=== PATIENT | male | born 1970 | race Caucasian/White ===

== ENCOUNTER 2019-02-12 19:48 | Emergency (ER) | payer BC ==
[~2019-02-12] VITALS: Ht 185.4 cm; Wt 118.4 kg
[2019-02-12 20:00] VITALS: BP_SYST 155
--- NOTE | 2019-02-12 20:06 | NUR ---
Patient triaged and placed in waiting room. VSS and patient appears in no acute distress at this time. Accompanied by , awaiting available bed, and MD notified of need for MSE.
[2019-02-12 21:01] LABS: BASOPHILS # (AUTO) 0.1 K/uL (0.0-0.2); BASOPHILS % (AUTO) 1.1 % (0.0-2.0); EOSINOPHILS # (AUTO) 0.5 K/uL (0.0-0.4); EOSINOPHILS % (AUTO) 5.2 % (0.0-4.0); HEMATOCRIT 43.8 % (36-54); LYMPHOCYTES # (AUTO) 3.2 K/uL (1.0-5.5); LYMPHOCYTES % (AUTO) 32.8 % (20.5-51.5); MEAN CORPUSCULAR HEMOGLOBIN 30 pg (27-31); MEAN CORPUSCULAR HGB CONC 34 % (32-36); MEAN CORPUSCULAR VOLUME 86 fL (79.0-98.0); MONOCYTES # (AUTO) 0.9 K/uL (0.0-1.0); MONOCYTES % (AUTO) 9.2 % (1.7-9.3); NEUTROPHILS % (AUTO) 51.7 % (40.0-70.0); PLATELET COUNT (AUTO) 380 K/uL (130-430); RED BLOOD CELL COUNT(AUTO) 5.09 MIL/uL (4.2-6.2); WHITE BLOOD COUNT (AUTO) 9.6 K/uL (4.8-10.8)
[2019-02-12 21:10] LABS: CALCIUM 9.1 mg/dL (8.4-11.0); CREATININE 0.91 mg/dL (0.55-1.30); POTASSIUM 3.8 mmol/L (3.5-5.1)
--- NOTE | 2019-02-12 21:14 | NUR ---
Patient to ER bed 3 to gown for evaluation. Side rails up. Report given to ALBERTO Hull.
--- NOTE | 2019-02-12 21:15 | NUR ---
Alma levine in [facility] - 02/12/19 at 2115 by [email or web address] Patient to bed 3 to [facility] for evaluation. Side rails up.
[2019-02-12 21:17] LABS: ALBUMIN 3.9 g/dL (3.4-4.8); TOTAL BILIRUBIN 0.2 mg/dL (0.0-1.0)
--- NOTE | 2019-02-12 21:20 | NUR ---
Patient brought in complaining of RUQ abdominal pain x 3 days. Pain 6/10 radiating to right back. Patient reports diarrhea today. Denies any nausea or vomiting. No other complaints/injuries per patient or as noted. Will continue to monitor.
--- NOTE | 2019-02-12 21:55 | NUR ---
ER Dr. Wilks at bedside examining patient.
[2019-02-12 21:57] LABS: BILIRUBIN,URINE NEGATIVE (NEGATIVE); CLARITY/URINE SL HAZY (CLEAR); COLOR,URINE YELLOW (YELLOW); GLUCOSE,URINE NEGATIVE (NEGATIVE); KETONES,URINE NEGATIVE (NEGATIVE); LEUKOCYTE ESTERASE ,URINE NEGATIVE (NEGATIVE); NITRITE, URINE NEGATIVE (NEGATIVE); PROTEIN URINE NEGATIVE (NEGATIVE); UROBILINOGEN,URINE 0.2 (0.2-1.0)
[2019-02-12] MEDS ORDERED: NACL 0.9% 1,000 ML IV ONE (22:03)
[2019-02-12] MEDS ORDERED: PANTOPRAZOLE SODIUM 40 MG/VIAL (PROTONIX) IVP ONE (22:15)
[2019-02-12] MEDS ORDERED: KETOROLAC TROMETHAMINE 30 MG VIAL IVP ONE (22:15)
[2019-02-12 22:46] LABS: BLOOD, URINE TRACE (NEGATIVE)
--- NOTE | 2019-02-12 23:27 | NUR ---
Ultrasound at bedside. Will continue to monitor.
[2019-02-12 23:48] LABS: RBC,URINE 0-3 /HPF (0-3)
[2019-02-12 23:49] LABS: BACTERIA,URINE FEW /HPF (None Seen); MUCUS,URINE 2+ /LPF (None Seen); WBC,URINE 0-3 /HPF (0-3)
[2019-02-13 01:23] VITALS: BP_SYST 132
--- NOTE | 2019-02-13 01:23 | NUR ---
Patient given written and verbal discharge instructions and verbalizes understanding. ER MD discussed with patient the results and treatment provided. Patient in stable condition. ID arm band removed. IV catheter removed intact and dressing applied, no active bleeding. Rx of Tylenol No. 3 given. Patient educated on pain management and to follow up with PMD in 7 days. Pain Scale 0/10 Opportunity for questions provided and answered. Medication side effect fact sheet provided.
== END 2019-02-13 01:23 | disposition home or self-care (01) ==
LOC: SED 19:48
DX: K76.0 Fatty (change of) liver, not elsewhere classified (principal); R03.0 Elevated blood-pressure reading, without diagnosis of hypertension; Z90.49 Acquired absence of other specified parts of digestive tract
CPT/HCPCS: 36415; 76700; 80053; 81000; 83690; 85025; 96361; 96374; 96375; 99284; C9113; J1885; J7030